=== PATIENT | female | born 1985 | race Hispanic/Latino ===

== ENCOUNTER 2016-11-06 15:37 | Emergency (ER) | payer OTHER ==
[2016-11-06 15:39] VITALS: BMI 22.4
[2016-11-06 15:43] VITALS: BP 118/75; PULSE 86; RESP 18; TEMP 98.1; O2SAT 98
--- NOTE | 2016-11-06 16:47 | ED PDOC ---
Arrival/HPI - General Chief Complaint: Medical Clearance Time Seen by Provider: 11/06/16 15:55 Historian: Patient - History of Present Illness Narrative History of Present Illness (Text): 11/06/16 Karmen Mireles is a 31 year old female, who presents to the emergency department concerned for fluid exposure suspected of HIV. 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 Patient states she is not sure whether the fluid got in her eye but admits to washing her face after the contact. Patient denies any other complaints. Time/Duration: Prior to Arrival Symptom Onset: Sudden Symptom Course: Unchanged Quality: Other (exposure to fluid suspected of HIV ) Activities at Onset: Light Context: Work Associated Symptoms (Text): possible exposure to eyes. Past Medical History - Provider Review Nursing Documentation Reviewed: Yes - Infectious Disease Hx of Infectious Diseases: None - Tetanus Immunization Tetanus Immunization: Unknown - Cardiac Hx Cardiac Disorders: No - Pulmonary Hx Respiratory Disorders: No - Neurological Hx Neurological Disorder: No - HEENT Hx HEENT Disorder: No - Renal Hx Renal Disorder: No - Endocrine/Metabolic Hx Endocrine Disorders: No - Hematological/Oncological Hx Blood Disorders: No - Integumentary Hx Dermatological Disorder: No - Musculoskeletal/Rheumatological Hx Musculoskeletal Disorders: Yes (LEFT KNEE MENISCUS TEAR) - Gastrointestinal Hx Gastrointestinal Disorders: No Hx Gastroesophageal Reflux: Yes - Genitourinary/Gynecological Hx Genitourinary Disorders: No - Psychiatric Hx Psychophysiologic Disorder: No Hx Depression: No Hx Emotional Abuse: No Hx Physical Abuse: No Hx Substance Use: No - Surgical History Hx Musculoskeletal Surgery: Yes (RT.ACL REPAIR AGE 18) Hx Orthopedic Surgery: Yes Hx Tonsillectomy: Yes - Anesthesia Hx Anesthesia: Yes Hx Anesthesia Reactions: No Hx Malignant Hyperthermia: No - Suicidal Assessment Feels Threatened In Home Enviroment: No Family/Social History - Physician Review Nursing Documentation Reviewed: Yes Family/Social History: Unknown Family HX Smoking Status: Never Smoked Hx Alcohol Use: No Hx Substance Use: No Hx Substance Use Treatment: No Allergies/Home Meds Allergies/Adverse Reactions: Allergies No Known Allergies Allergy (Verified 01/28/14 14:06) Home Medications: Home Meds Medication Instructions Recorded Confirmed Norethindrone-E.estradiol-Iron 1 tab PO DAILY 11/06/16 11/06/16 [Junel Fe 1 mg-20 Mcg Tablet] Omeprazole [Omeprazole] 1 cap PO DAILY 11/06/16 11/06/16 Review of Systems - Review of Systems Constitutional: absent: Fevers Eyes: Other (possible exposure to HIV fluid ). absent: Vision Changes Respiratory: absent: SOB Cardiovascular: absent: Chest Pain Gastrointestinal: absent: Abdominal Pain Skin: Other (exposure on the face to HIV fluid) Physical Exam Vital Signs Reviewed: Yes Vital Signs Temp Pulse Resp BP Pulse Ox 11/06/16 15:42 98.1 F 86 18 118/75 98 Temperature: Afebrile Blood Pressure: Normal Pulse: Regular Respiratory Rate: Normal Appearance: Positive for: Well-Appearing, Non-Toxic, Comfortable Pain Distress: None Mental Status: Positive for: Alert and Oriented X 3 - Systems Exam Head: Present: Atraumatic, Normocephalic Pupils: Present: PERRL Extroacular Muscles: Present: EOMI Conjunctiva: Present: Normal Mouth: Present: Moist Mucous Membranes Neck: Present: Normal Range of Motion Respiratory/Chest: Present: Clear to Auscultation, Good Air Exchange. No: Respiratory Distress, Accessory Muscle Use Cardiovascular: Present: Regular Rate and Rhythm, Normal S1, S2. No: Murmurs Abdomen: Present: Normal Bowel Sounds. No: Tenderness, Distention, Peritoneal Signs Upper Extremity: Present: Normal Inspection. No: Cyanosis, Edema Lower Extremity: Present: Normal Inspection. No: Edema Neurological: Present: GCS=15, CN II-XII Intact, Speech Normal Skin: Present: Warm, Dry, Normal Color. No: Rashes Psychiatric: Present: Alert, Oriented x 3, Normal Insight, Normal Concentration Medical Decision Making ED Course and Treatment: 11/06/16 Impression: 31 year old female with concern of medical clearance due to exposure of HIV fluid at work. Plan: -- Educated patient on fluid exposure. Since patient had no need exposure she does not need blood work or tx. She only had fluid go on her face. Pt cleaned and washed her face thoroughly prior to ED visit. Progress Notes: Patient will follow up with employee health. Patient was given the opportunity to ask question, all questions were answered and there is agreement with the plan to discharge the patient home. Patient is stable for discharge. - Scribe Statement The provider has reviewed the documentation as recorded by the Scribe 11/06/2016 Ynes Camargo Provider Scribe Attestation: All medical record entries made by the Dina were at my direction and personally dictated by me. I have reviewed the chart and agree that the record accurately reflects my personal performance of the history, physical exam, medical decision making, and the department course for this patient. I have also personally directed, reviewed, and agree with the discharge instructions and disposition. Disposition/Present on Arrival - Present on Arrival Any Indicators Present on Arrival: No History of DVT/PE: No History of Uncontrolled Diabetes: No Urinary Catheter: No History of Decub. Ulcer: No History Surgical Site Infection Following: None - Disposition Have Diagnosis and Disposition been Completed?: Yes Diagnosis: Employee exposure to body fluids Disposition: HOME/ ROUTINE Disposition Time: 16:22 Patient Plan: Discharge Condition: GOOD Discharge Instructions (ExitCare): HIV Transmission (ED) Additional Instructions: Ms Mireles, thank you for letting us take care of you today. Your provider was Dr Bailey. You were treated for Fluid Exposure. The emergency medical care you received today was directed at your acute symptoms. If you were prescribed any medication, please fill it and take as directed. It may take several days for your symptoms to resolve. Return to the Emergency Department if your symptoms worsen, do not improve, or if you have any other problems. Please contact your doctor or call one of the physicians/clinics you have been referred to that are listed on the Patient Visit Information form that is included in your discharge packet. Bring any paperwork you were given at discharge with you along with any medications you are taking to your follow up visit. Our treatment cannot replace ongoing medical care by a primary care provider (PCP) outside of the emergency department. Thank you for allowing the [facility] team to be part of your care today. If you had an X-Ray or CT scan: A Radiologist will review the ED reading if any change in treatment is needed we will contact you. If you had a blood, urine, or wound culture: It will take several days for the results, if any change in treatment is needed we will contact you. If you had an STI test: It will take 48 hours for the results. Please call after 1 week if you have not heard back. Referrals: Sophie Monahan MD [Primary Care Provider] - Follow up with primary Forms: [employer] (French)
== END 2016-11-06 16:25 | disposition home or self-care (01) ==
LOC: ED 15:37
DX: Z77.21 Contact with and (suspected) exposure to potentially hazardous body fluids (principal)